=== PATIENT | male | born 1990 | race Hispanic/Latino ===

== ENCOUNTER 2025-02-16 07:16 | Emergency (ER) | payer SELFPAY ==
[~2025-02-16] VITALS: Ht 182.9 cm; Wt 81.6 kg
[2025-02-16 07:16] VITALS: BP 112/65; PULSE 97; RESP 18; TEMP 97.8; O2SAT 98
[2025-02-16] MEDS ORDERED: NS 1000ML 1,000 ML ONE (07:50)
[2025-02-16] MEDS ORDERED: ZOFRAN ONE (07:50)
[2025-02-16] MEDS: ZOFRAN IV STA (07:53)
[2025-02-16] MEDS: NS 1000ML 1,000 ML STA (07:53)
[2025-02-16 07:58] LABS: BASOPHIL # 0.0 10^3/uL (0.0-0.1); BASOPHIL % 0.2 % (0.2-1.2); EOSINOPHIL # 0.0 10^3/uL (0.0-0.2); EOSINOPHIL % 0.1 % (0.0-5.0); HEMATOCRIT(ML) 53.0 % (37.0-53.0); IG % 0.20 % (0.00-0.50); LYMPHOCYTES # 2.50 10^3/uL1 (1.0-4.8); LYMPHOCYTES % 25.9 % (24.0-44.0); MEAN CORP HGB 29.5 pg (26-34); MEAN CORP HGB CONCENTRATION 33.4 g/dL (33-36.5); MEAN CORP VOLUME 88.2 fL (78-100); MONOCYTES # 0.8 10^3/uL (0.3-0.8); MONOCYTES % 7.8 % (5.0-12.0); NEUTROPHIL # 6.3 10^3/uL (1.8-7.7); NEUTROPHILS % 65.8 % (41.0-85.0); RED BLOOD CELL 6.01 10^6/uL (4.50-5.90); RED CELL DISTRIBUTION WIDTH 12.8 % (11.5-14.5); WHITE BLOOD CELL 9.6 10^3/uL (4.5-11.0)
[2025-02-16 08:17] LABS: ALANINE AMINOTRANSFERASE(ML) 26.0 U/L (12-78); ALBUMIN(ML) 4.6 g/dL (3.4-5.0); CREATININE SERUM 1.28 mg/dL (0.59-1.40); EST GFR, NON-AA 64.3 (>/=60)
[2025-02-16 08:18] LABS: INFLUENZA VIRUS A ANTIGEN NEGATIVE (NEG); INFLUENZA VIRUS B ANTIGEN NEGATIVE (NEG)
[2025-02-16 08:23] VITALS: BP 143/74; PULSE 88; RESP 18; O2SAT 98
[2025-02-16] MEDS ORDERED: ASPIRIN ONE (08:27)
[2025-02-16] MEDS ORDERED: LACTATED RINGERS 1,000 ML ONE ×2 (08:27→08:49)
[2025-02-16 08:31] LABS: INR 1.0; PROTHROMBIN PROTIME 10.5 SEC (9.3-11.6)
[2025-02-16] MEDS: LACTATED RINGERS 1,000 ML IV STA ×2 (08:31→08:57)
[2025-02-16] MEDS: ASPIRIN PO STA (08:32)
[2025-02-16 08:39] LABS: TROPONIN I HIGH SENSITIVITY 8 ng/L (0-75)
[2025-02-16 08:42] LABS: ABG PH 7.096 (7.350-7.450)
[2025-02-16 08:43] LABS: ABG PCO2 15.6 mmHg (35.0-48.0); BE(B) -22.6 mmol/L (-2.0-3.0); HCO3act 4.7 mmol/L (21.0-28.0)
[2025-02-16] MEDS ORDERED: NS 100ML 100 ML IV ONE (08:48)
[2025-02-16] MEDS ORDERED: KCL 20 MEQ/100 ML SOL 100 ML IV ONE (08:49)
[2025-02-16] MEDS ORDERED: KLOR-CON PO ONE (08:49)
[2025-02-16] MEDS: KLOR-CON PO STA (08:56)
[2025-02-16] MEDS: KCL 20 MEQ/100 ML SOL 100 ML IV STA (08:57)
[2025-02-16 09:36] VITALS: BP 150/81; PULSE 92; RESP 18; O2SAT 98
[2025-02-17 12:20] LABS: ABG OX -sO2 97.0 % (94.0-98.0)
== END 2025-02-16 09:43 | disposition short-term general hospital (02) ==
LOC: ER 07:16
DX: E11.10 Type 2 diabetes mellitus with ketoacidosis without coma (principal); Z20.822 Contact with and (suspected) exposure to COVID-19
CPT/HCPCS: 99291; 96374; 96361; 87426; 99292; 80053; 85025; 82948 ×2; 36415; 84484; 87070; 87880; 87804 ×2; 83880; 82010; 85610; 93005; 82803; 36600; J7030; J7120 ×2; J1815; J3490; J2405; J3480; J8499